=== PATIENT | male | born 1975 | race Caucasian/White ===

== ENCOUNTER → 2016-04-22 | Outpatient (CLI) | payer SELFPAY ==
[~2016-04-22] MED LIST: CEPH-507 PO
[2016-04-22 12:25] VITALS: BP 140/82
--- NOTE | 2016-04-22 12:25 | Urgent Care T Sheet Gen (E) ---
Intake General Temperature (Fahrenheit): 96.3 Pulse: 93 Blood Pressure Systolic: 140 Blood Pressure Diastolic: 82 Respirations: 16 SPO2: 97 Description of Symptoms Patient presents with laceration to the toe webbing between the R 3rd-4th toes. Patient states that on Wednesday, he stepped out on his porch to grab his cat and he slipped on the ice. Patient was bare-footed and caught his food on the metal railing. States the area was cut however didn't jam or injury the foot otherwise. Last tetanus shot is unknown. States the laceration bled quite a bit on Wednesday however has since stopped. he has been cleaning the area several times daily and has been applying Neosporin. No pain to the area, just the laceration. Normal sensation. History of Present Illness Home Meds Active Scripts Cephalexin (Keflex)500 Mg [id number] Mg PO TID Infection #21 CAP Ref 0 Prov:KAI MAGDALENO 04/22/16 Respiratory Constitutional Symptoms: No syptoms reported Skin: Other (laceration) All Other Systems Reviewed Remaining Systems: All other systems reviewed with negative findings Physical Exam Physical Exam General Appearance: WD/WN No apparent distress Skin Exam: Other (laceration noted along the toe web between the R 3rd-4th toes. laceration appears shallow. no bleeding. neosporin is noted over the area. ) Extremity Exam: Full range of motion (in R toes) Neurologic/Psychiatric Exam: No sensory deficits (in R foot) Medications Administered Medications Adminstered: TDAP > 7 yrs (Lot [id number] Exp 08/13/17) Departure Urgent Care Impression Impression: Primary Impression: Laceration of toe of right foot Qualified Code: S91.119A - Laceration without foreign body of unspecified toe without damage to nail, initial encounter Departure Disposition: HOME OR SELF-CARE Condition: Stable Additional Instructions: Patient received a Tdap vaccine to the L deltoid. No issue. Regarding the laceration, it is in a very awkward spot. Fortunately, it is very superficial. Even if he were to have come in soon after the injury, I doubt glue or sutures would have been an option. Instructed the patient to stop with the Neosporin. I'm afraid with the location of the laceration, the moistness of the Neosporin will slow healing. I have started him on Keflex x 7 days. The area didn't appear infected however with the location and the nature of injury, wanted to be safe. Return as needed Patient understands DC instructions. All questions were answered. Scripts Cephalexin (Keflex)500 Mg [id number] Mg PO TID Infection #21 CAP Ref 0 Prov:KAI MAGDALENO 04/22/16 End of report . KAI MAGDALENO Apr 22, 2016 10:34
== END ==
LOC: MHUC 10:19
PROVIDERS: ATTEND Physician Assistant
DX: S91.111A Laceration without foreign body of right great toe without damage to nail, initial encounter (principal); W00.2XXA Other fall from one level to another due to ice and snow, initial encounter; Y92.098 Other place in other non-institutional residence as the place of occurrence of the external cause
CPT/HCPCS: 90471; 90715; 99202